=== PATIENT | female | born 1970 | race Asian ===

== ENCOUNTER 2017-12-23 14:50 | Emergency (ER) | payer OTHER ==
[~2017-12-23] VITALS: Ht 167.6 cm; Wt 54.4 kg
[2017-12-23] MEDS ORDERED: Sodium Bicarbonate 50ml Carp ONE (15:18)
[2017-12-23] MEDS ORDERED: Amiodarone 150mg/ml 3ml Amp ONE (15:18)
[2017-12-23] MEDS ORDERED: Calcium Chloride 10% 10ml carpuject IVP ONE (15:18)
[2017-12-23 15:30] VITALS: BP 0/0
--- NOTE | 2017-12-23 18:29 | Emergency Room Report ---
History of Present Illness General Chief Complaint: CPR Source: Family Member, EMS Present Illness HPI 47-year-old female presents ED in cardiac arrest. EMS states that patient had a witnessed arrest approximately 40 minutes prior to arrival. Family started chest compressions after patient collapsed. EMS continue chest compressions. Given epi 4. One episode of V. fib and shocked the patient. Patient intubated with Satish airway. at bedside states that patient has a " heart history" and takes some medicine. He does not know what condition the patient has. Does not know what medication she takes. Patient was feeling chest pain earlier this morning. Patient unable to provide any history at this time. No other aggravating relieving factors. No other associated symptoms Allergies: Coded Allergies: No Known Allergies (Unverified , 12/23/17) Patient History Past Medical History: HTN Past Surgical History: none Pertinent Family History: none Social History: Denies: smoking, alcohol use, drug use Now: No Immunizations: UTD Reviewed Nursing Documentation: PMH: Agreed; PSxH: Agreed Nursing Documentation-PMH Past Medical History: No History, Except For Hx Cardiac Problems: Yes Hx Hypertension: Yes Review of Systems All Other Systems: limited Physical Exam Vital Signs Date Time Temp Pulse Resp B/P (MAP) Pulse Ox O2 Delivery O2 Flow Rate FiO2 12/23/17 14:51 0 0 0/0 15 Sp02 EP Interpretation: reviewed, abnormal General Appearance: other - intubated, Stupor Head: normocephalic Eyes: bilateral eye other - fixed pupils ENT: normal ENT inspection Neck: normal inspection Respiratory: other - breath sounds with ventilationg Cardiovascular #1: other - no pulse Gastrointestinal: normal inspection Rectal: deferred Genitourinary: no CVA tenderness Musculoskeletal: normal inspection Neurologic: other - nonresponsive Psychiatric: other - nonresponsive Skin: normal inspection Lymphatic: normal inspection Procedures Critical Care Time Critical Care Time i. I feel this is a highly complex case requiring extensive working including EKG/Rhythm strip, Xray/CT/US, Blood/urine lab work, repeat exams while in ED, and administration of strong opiates/narcotics for pain control, admission to hospital or close patient follow up. Total time: 30 min bedside evaluation and treatment excludes procedures (EKG). Reason for critical care: Cardiac arrest Possible complications: hypotension, hypertension, [place], shock, arrhythmias, metabolic acidosis, end organ damage, respiratory failure. Interventions: intubation. chest compressions. ACLS. epinephrine. calcium. bicarbonate. shock x 1. amiodarine Course: Patient presenting in cardiac arrest. Initial rhythm PE A. Patient given epi times for prior to arrival. Patient given additional epinephrine rounds. Unable to ventilate properly with Satish airway. Patient was intubated using 7.5 ET tube. Given calcium and bicarbonate. One episode of V. fib. Shocked 1. Return to PEA. Given amiodarone. no return of pulses. efforts terminated. patient Consultations: nursing staff, EMS, family Performed by: Dr Jean Baptiste Tolerated well condition = j. because of unstable vital signs this patient had a condition that could potentially threaten life or limb. I feel this is a critical patient who required my full attention while patient was considered critical. Total Critical Care Time excluding procedures was greater than 35 minutes Cardioversion Cardioversion: Consent: Emergent Indication: Other - Vfib Type: Desynchonis Response: Other - PEA Attempts: One Patient Tolerated: Poor Complications: Other - patient CPR/Code Blue CPR/Code Blue Narrative see code blue sheet for full narrative Intubation Intubation : Consent: Emergent Intubation Method: orotracheal Tube Size (cm): 7.5 Breath Sounds after Intubation: equal Intubation Complications: no complications Post Intubation Xray: No - patient Attempts: One Patient Tolerated: Well Complications: None Medical Decision Making Diagnostic Impression: Primary Impression: Cardiac arrest ER Course 47-year-old female presents ED in cardiac arrest. Witnessed by family DifferentialMI, dissection, PEA Patient based on stretcher. Compressions underway. Patient intubated with Satish airway. Respiratory therapist noticed that balloon is not properly inflated. We removed the Satish airway and reintubated Patient given initially epi 4. Shocked 1. We gave multiple rounds of epinephrine. Given calcium and bicarbonate. Patient did have one episode of V. fib and we shocked the patient return to PEA. Patient did receive a bolus dose of amiodarone Patient continued to remain in PEA. At this time patient was in arrest for nearly 1 hour. Likelihood of good outcome at this time is very poor. I discussed findings with the and resuscitative efforts terminated Family at bedside with social work administrator. Daughter states that patient was feeling sick this morning and she asked patient to go to the hospital but patient declined. States that yesterday patient went to a clinic and received a shot for unknown purpose. They dont know what medication the patient received and for what reason. Diagnosiscardiac arrest Patient expires in ED Last Vital Signs Date Time Temp Pulse Resp B/P (MAP) Pulse Ox O2 Delivery O2 Flow Rate FiO2 12/23/17 15:30 0 0 0/0 0 Status: worsened Disposition: Condition: Referrals: Yannick Becerra MD (PCP) Joe Jean Baptiste MD Dec 23, 2017 18:29
== END 2017-12-23 18:00 | disposition expired ==
LOC: EDBD 14:50 → EMR 15:17
DX: I46.9 Cardiac arrest, cause unspecified (principal)
CPT/HCPCS: 31500; 92960; 99291; J0171; J0282; J3490